=== PATIENT | female | born 1940 | race Caucasian/White ===

== ENCOUNTER 2016-07-23 08:55 | Emergency (ER) | payer OTHER ==
[~2016-07-23] VITALS: Ht 160 cm; Wt 86.2 kg
[~2016-07-23 08:55] MED LIST: ATORVASTATIN CA40 M1 PO; CALCIUM CITRATE1 TA1 PO; ESCITALOPRAM20 M1 PO; FENOFIBRATE145 M1 PO; FERROUS SULFAT325 M2 PO; HEP-FORTE1 CAP PO; HYDROCHLOROTHIA25 MG PO; INVOKANA300 MG PO; LANTUS SOLOS100 U/M1 SC; LATUDA40 M1 PO; LORAZEPAM0.5 MG PO; METFORMIN HCL1000 MG PO; METOPROLOL TART50 MG PO; MOBIC7.5 MG PO; NEU300 PO; NOR10 PO; OLANZAPINE5 M2 PO; OXYBUTYNIN CHLO10 MG PO; TRADJENTA5 M1 PO; VENLAFAXINE HYD75 MG PO; VITAMIN D1000 I1 PO; ZESTRIL20 MG PO
[2016-07-23 12:46] VITALS: BP 148/78
== END 2016-07-23 12:46 | disposition home or self-care (01) ==
LOC: ED 08:55
DX: F41.9 Anxiety disorder, unspecified (principal); I10 Essential (primary) hypertension; E11.9 Type 2 diabetes mellitus without complications; F13.20 Sedative, hypnotic or anxiolytic dependence, uncomplicated; R19.7 Diarrhea, unspecified; N39.0 Urinary tract infection, site not specified; F32.9 Major depressive disorder, single episode, unspecified; Z79.899 Other long term (current) drug therapy; Z88.8 Allergy status to other drugs, medicaments and biological substances
CPT/HCPCS: Q0177

== ENCOUNTER 2016-11-21 10:05 | Emergency (ER) | payer OTHER ==
[2016-11-21 12:33] LABS: BASOPHIL % 0.3 % (0-2); PLATELET COUNT 332 x10^3mcL (130-400)
[2016-11-21 12:39] LABS: microscopic required? NO
[2016-11-21 12:39] LABS: CARBON DIOXIDE 24.9 mmol/L (21-32); CHLORIDE SERUM 104 mmol/L (98-107); CREATININE SERUM 0.8 mg/dL (0.6-1.0); GLUCOSE SERUM 112 mg/dL (74-106); POTASSIUM SERUM 4.1 mmol/L (3.5-5.1); RED CELL DISTRIBUTION WIDTH 14.7 % (11.5-14.5); SODIUM SERUM 136 mmol/L (136-145)
[2016-11-21 12:47] LABS: urine erythrocyte NEGATIVE (NEGATIVE)
[2016-11-21 12:47] LABS: ALBUMIN 3.1 g/dL (3.4-5.0); ALKALINE PHOSPHATASE 93 U/L (46-116); ALT/SGPT 23 U/L (14-59); AMYLASE 30 U/L (25-115); AST/SGOT 17 U/L (15-37); BILIRUBIN TOTAL 0.3 mg/dL (0.20-1.00); LIPASE 108 IU/L (73-393); TOTAL PROTEIN, SERUM 6.3 g/dL (6.4-8.2)
[2016-11-21 12:57] LABS: AMPHETAMINE QUAL UR NONE DETECTED (NEG <=1000)
[2016-11-21 15:53] VITALS: BP 143/58
== END 2016-11-21 15:53 | disposition home or self-care (01) ==
LOC: ED 10:05
PROVIDERS: Emergency Medicine
DX: R51 Headache (principal); M54.2 Cervicalgia; F41.9 Anxiety disorder, unspecified; G89.29 Other chronic pain; I10 Essential (primary) hypertension; E11.9 Type 2 diabetes mellitus without complications; F99 Mental disorder, not otherwise specified; F32.1 Major depressive disorder, single episode, moderate; Z79.899 Other long term (current) drug therapy; Z88.8 Allergy status to other drugs, medicaments and biological substances; Z79.84 Long term (current) use of oral hypoglycemic drugs
CPT/HCPCS: 36600; 83880; J1885; J2270; J2405; J3490; J7030; Q9967

== ENCOUNTER 2016-11-29 11:40 | Inpatient (IN) | payer OTHER ==
[~2016-11-29] VITALS: Ht 154.9 cm; Wt 83.2 kg
--- NOTE | 2016-11-29 11:57 | NUR ---
DR LEWIS AT BEDSIDE FOR MSE. PT C/O BLQ PAIN SINCE THIS AM, PT STS ITS CONSTIPATION AND REPORTING THE LAST BM WAS YESTERDAY BUT 1 WEEK PRIOR TO THAT. PT IS ALERT AND ORIENTED FROM PACIFICA PER MEDICS, PT BREATHING IS UNLABORED AND EVEN.
--- NOTE | 2016-11-29 12:29 | NUR ---
PT OFF THE FLOOR TO CT VIA [place]
[2016-11-29 12:34] LABS: BASOPHIL % 0.2 % (0-2); PLATELET COUNT 364 x10^3mcL (130-400)
[2016-11-29 12:35] LABS: RED CELL DISTRIBUTION WIDTH 14.9 % (11.5-14.5)
--- NOTE | 2016-11-29 12:41 | NUR ---
PT BACK FROM CT AND RECONNECTED TO , SIDE RAILS UP FOR SAFETY, EMT AT BEDSIDE FOR EKG AT THIS TIME.
[2016-11-29 12:51] LABS: CALCIUM 8.9 mg/dL (8.5-10.1); CARBON DIOXIDE 24.1 mmol/L (21-32); CHLORIDE SERUM 102 mmol/L (98-107); CREATININE SERUM 0.9 mg/dL (0.6-1.0); GLUCOSE SERUM 223 mg/dL (74-106); POTASSIUM SERUM 4.5 mmol/L (3.5-5.1); SODIUM SERUM 136 mmol/L (136-145)
[2016-11-29 12:55] LABS: ALKALINE PHOSPHATASE 88 U/L (46-116); ALT/SGPT 21 U/L (14-59); AST/SGOT 15 U/L (15-37); BILIRUBIN TOTAL 0.27 mg/dL (0.20-1.00); LIPASE 92 IU/L (73-393); TOTAL PROTEIN, SERUM 6.5 g/dL (6.4-8.2)
[2016-11-29 12:57] LABS: ALBUMIN 2.9 g/dL (3.4-5.0)
[2016-11-29] MEDS ORDERED: TRAMADOL HCL50 MG PO (14:01)
--- NOTE | 2016-11-29 14:58 | NUR ---
LAB AT BEDSIDE
--- NOTE | 2016-11-29 15:05 | NUR ---
PT AMBULATED TO ER RESTROOM.
--- NOTE | 2016-11-29 15:11 | NUR ---
GAVE REPORT TO AIME, ALL QUESTIONS ADDRESSED.
[2016-11-29 15:14] LABS: MAGNESIUM 1.9 mg/dL (1.8-2.4); PHOSPHOROUS 3.8 mg/dL (2.5-4.9)
--- NOTE | 2016-11-29 15:16 | NUR ---
PT PROVIDED URINE SAMPLE AND SENT TO LAB
[2016-11-29 15:18] LABS: microscopic required? NO
[2016-11-29 15:21] LABS: T3 TOTAL 0.76 ng/mL
[2016-11-29 15:23] LABS: FREE T4 0.91 ng/dL (0.76-1.46); FREE THYROXINE INDEX 2.3 ug/dL (1.4-4.5); T4(THYROXINE) 6.7 ug/dL (4.7-13.3)
[2016-11-29 15:55] LABS: UA SPECIFIC GRAVITY <=1.005 (1.005-1.035); urine erythrocyte NEGATIVE (NEGATIVE)
--- NOTE | 2016-11-29 16:02 | NUR ---
RECEIVED PATIENT FROM ER NURSE. SETTLED IN ROOM, ORIENTED TO SURROUNDINGS AND PLACED ON CARDIAC MONITORING TELE # [id number]. ADMITTED WITH DX OF DIVERTICULITIS. PATIENT IS AWAKE, ALERT AND ORIENTED TO PERSON, PLACE, TIME AND SITUATION. CONVERSING APPROPRIATELLY. HISTORY AND ASSESSMENT OBTAINED FROM PATIENT. PATIENT APPEARS ANXIOUS TO RECEIVE "ANXIETY MEDICATION". REQUESTING CLONOPIN. SAYS THAT SHE TAKES IT 3 X PER DAY ADN THAT SHE NEEDS IT NOW. DR LIND SAW PATIENT AND IS AWARE OF PATIENT'S REQUEST. IV INFUSING LEVAQUIN.
[2016-11-29 16:12] VITALS: BP 136/63
--- NOTE | 2016-11-29 17:07 | NUR ---
AT 1630 - COMMENCED IV INFUSION OF NS AT 100ML/HR. RECEIVED CALL FROM PATIENT'S DAUGHTER MONICA WHO THEN SPOKE WITH PATIENT PER PHONE. STIL AWAITING ORDER FOR ANXIETY MEDICATION WHICH PATIENT IS REQUESTING REPEATEDLY. DR BALDWIN WORKING ON MEDICATION ORDERS.
--- NOTE | 2016-11-29 17:44 | NUR ---
AT 1723 - MEDICATED WITH ATIVAN 0.5 MG PO PER EMAR. PATIENT RESTING QUIETLY. NPO AT THIS TIME.
--- NOTE | 2016-11-29 18:55 | NUR ---
PATIENT DAUGHTER VISITED AND BROUGHT UPDATED HOME MED LIST. IV INFUSION CHANGED TO D5 NS AT 100ML/HR. PATIENT HAS BEEN MEDICATED WITH NORCO FOR C/O HEADACHE. WILL ENDORSE CARE TO NIGHT NURSE.
[2016-11-29] MEDS ORDERED: CLONAZEPAM1 MG PO (19:09)
[2016-11-29] MEDS ORDERED: CLARITIN REDITAB5 MG PO (19:10)
[2016-11-29] MEDS ORDERED: NOVI SQ (19:10)
[2016-11-29] MEDS ORDERED: OMEPRAZOLE20 M4 PO (19:11)
[2016-11-29] MEDS ORDERED: DETROL LA4 MG PO (19:11)
[2016-11-29] MEDS ORDERED: TRAZODONE50 M1 PO (19:11)
[2016-11-29] MEDS ORDERED: KEN025C TOP (19:12)
[2016-11-29] MEDS ORDERED: TRESIBA FL100 UNIT/1 SQ (19:12)
[2016-11-29] MEDS ORDERED: COLACE100 MG PO (19:13)
[2016-11-29] MEDS ORDERED: BENADRYL ALLERG25 M1 PO (19:13)
[2016-11-29] MEDS ORDERED: HYDROXYZINE50 M1 PO (19:14)
[2016-11-29] MEDS ORDERED: IBUPROFEN400 MG PO (19:15)
[2016-11-29] MEDS ORDERED: MAPAP ARTHRITI650 MG PO (19:15)
[2016-11-29] MEDS ORDERED: ONDANSETRON4 M3 PO (19:16)
[2016-11-29] MEDS ORDERED: PROMETHAZI6.25 MG/5 PO (19:18)
[2016-11-29] MEDS ORDERED: ZZZQUIL25 MG PO (19:18)
--- NOTE | 2016-11-29 19:25 | NUR ---
PT IS AAOX4. ON TELE 33 WITH FIRST DEGREE AV BLOCK. CTA ON RA. BS ARE ACTIVE, ABD ROUND, SOFT, NON-DISTENDED. THE PT DENIES ANY PAIN AT THIS TIME. THE IV IS IN THE RH, RUNNING D5 1/2 NS AT 100 ML/HR. THE BED IS IN THE LOWEST POSITION WITH THE CALL LIGHT WITHIN REACH. WILL CONTINUE TO MONITOR.
[2016-11-29] MEDS ORDERED: METOPROLOL SUCC50 M2 PO (20:49)
[2016-11-29] MEDS ORDERED: LORAZEPAM0.5 MG PO (20:55)
[2016-11-29 21:13] VITALS: BP 130/52
--- NOTE | 2016-11-29 21:48 | NUR ---
UNABLE TO PULL VIT-D AT THIS TIME. [facility]feron WON'T ALLOW IT. REQUESTED DR. VIGIL PUT IN ONE TIME ORDER. WAITING FOR KENALOG TO BE AVAILABLE UPSTAIRS.
--- NOTE | 2016-11-29 22:54 | NUR ---
PT REQUESTED KLONOPIN AND SLEEPING AID. DR. VIGIL MADE AWARE.
--- NOTE | 2016-11-30 02:49 | NUR ---
PT IS REQUESTING ANOTHER KLONOPIN. PAGEGATED DR. VIGIL.
--- NOTE | 2016-11-30 03:30 | NUR ---
IV GOT PULLED OUT BY PT ON ACCIDENT. NEW IV, 22 G STARTED ON LFA. INFUSING WELL.
--- NOTE | 2016-11-30 05:51 | NUR ---
PAGEGATED DR. VIGIL ABOUT PT REQUEST FOR KLONOPIN
[2016-11-30 06:11] VITALS: BP 144/57
--- NOTE | 2016-11-30 06:12 | NUR ---
ALL NEEDS HAVE BEEN MET THROUGHOUT THE NIGHT. SCHEDULED ATIVAN HAS BEEN CHANGED TO SCHEDULED KLONOPIN PER PT PREFERENCE. NO ACUTE DISTRESS NOTED. BED IN LOWEST POSITION AND CALL LIGHT WITHIN REACH. WILL ENDORSE TO MORNING SHIFT.
--- NOTE | 2016-11-30 07:38 | NUR ---
AT 0705 - RECEIVED PATIENT FROM NIGHT NURSE. AWAKE, ALERT AND ORIENTED. MONITOR SHOWING SINUS RHYTM; RATE 65. IV INFUSING D5 NS AT 100ML/HR. PATIENT IS NPO. ASSISTED TO BATHROOM TO VOID. SLOW AMBULATION. RETURNED TO BED AND INSTRUCTED TO CALL WITH ANY NEEDS.
[2016-11-30 07:57] LABS: BASOPHIL % 0.3 % (0-2); PLATELET COUNT 324 x10^3mcL (130-400)
[2016-11-30 08:03] LABS: RED CELL DISTRIBUTION WIDTH 14.8 % (11.5-14.5)
[2016-11-30 08:16] LABS: CALCIUM 8.6 mg/dL (8.5-10.1); CARBON DIOXIDE 23.8 mmol/L (21-32); CHLORIDE SERUM 104 mmol/L (98-107); CREATININE SERUM 0.8 mg/dL (0.6-1.0); GLUCOSE SERUM 163 mg/dL (74-106); MAGNESIUM 1.9 mg/dL (1.8-2.4); PHOSPHOROUS 3.7 mg/dL (2.5-4.9); POTASSIUM SERUM 4.4 mmol/L (3.5-5.1); SODIUM SERUM 138 mmol/L (136-145)
[2016-11-30 08:57] VITALS: BP 139/70
--- NOTE | 2016-11-30 09:59 | NUR ---
PATIENT HAS BEEN SEEN BY DR VEGAS DURING MORNING ROUNDS. MEDICAL TEAM DOCTORS, ROSALINDA CENTENO AND MYSELF PRIMARY NURSE ALSO PRESENT. DR VEGAS SPOKE WITH PATIENT ABOUT MEDICATION FOR ANXIETY. EXPLAINED TO PATIENT IMPORTANCE OF SAFETY WHEN TAKING LARGE DOSES OF THESE MEDS AND THEIR EFFECTS. TO COMMENCE ON BUSPAR.
--- NOTE | 2016-11-30 10:51 | NUR ---
COMMENCED ON BUSPAR. FIRST DOSE ADMINISTERED.
[2016-11-30 13:11] VITALS: BP 133/55
--- NOTE | 2016-11-30 13:14 | NUR ---
COMMENCED ON CLEAR LIQUID DIET. TOLERATING WELL. C/O HEADACHE AND MEDICATED WITH NORCO PER EMAR. BLE ULTRASOUND COMPLETED. RECEIVED CALL FROM PATIENT'S DAUGHTER MONICA; UPDATED ON PATIENT'S PLAN OF CARE.
--- NOTE | 2016-11-30 15:44 | NUR ---
PATIENT TAKEN OFF CARDIAC MONITORING STATUS CHANGED TO MEDR.
[2016-11-30 16:46] VITALS: BP 133/56
--- NOTE | 2016-11-30 16:55 | NUR ---
GIVEN ADDITIONAL DOSE OF ATIVAN 1MG PO FOR RESTLESSNESS AND TREMORS.
--- NOTE | 2016-11-30 18:45 | NUR ---
VSS. AFEBRILE. NO C/O ABDOMINAL PAIN. TOLERATING CLEAR LIQUID DIET. NO NAUSEA. AMBULATES TO BATHROOM FOR TOILET NEEDS. IV INFUSING D5 NS AT 50ML/HR. WILL ENDORSE CARE TO NIGHT NURSE.
--- NOTE | 2016-11-30 21:12 | NUR ---
AWAKE AND VERBALLY RESPONSIVE. ABLE TO MAKE NEEDS KNOWN, STILL C/O ANXIOUSNESS, ASKING FOR ANTIANXIETY PILLS , ENCOURAGED TO VERBALIZED FEELINGS. PLACED CALL LIGHT WITHIN REACH, INSTRUCTED TO CALL FOR ANY ASSSITANCE, AND NOT GET OUT OF BED UNASSISTED. PT VERBALIZED UNDERSANDING. WILL CONTINUE TO MONITOR.
[2016-11-30 21:14] VITALS: BP 143/57
--- NOTE | 2016-12-01 00:01 | NUR ---
CONTINUES ON ATB IVPB FOR MANAGEMENT OF DIVERTICULITIS WITHOUT ADVERSE REQ=ACTION NOTED. TOLERATED ORAL FLUIDS. NO S/S OF ASPIRATION NOTED. WILL CONTINUE TO MONIOR.
--- NOTE | 2016-12-01 00:09 | NUR ---
POTASSIUM LEVEL=2.6, CO2=42.1, H/H=7.2/21, DR VIGIL MADE AWARE. PT APPARNETLY COMOFRTABLE IN BED. IVF D5 WITH 30MQ KCL AT 83.33 CC/HR INFUSING WELL VIA PERIPHERAL LINE AT THE RAC TOLERATING WELL.
--- NOTE | 2016-12-01 05:27 | NUR ---
ASSSITED TO [facility] COMMODE FOR BLADDER ELEIMINATION WITH PERIODS OF INCONTINENCE. GOOD PERICARE RENDERED. KEPT CLEAN AND DRY. NO ADVERSE REACTION NOTED FROM ATB THERAPY FOR MANAGEMENT OF DIVERTICULITIS. ALL NEEDS ATTENDED.
[2016-12-01 06:15] VITALS: BP 126/63
[2016-12-01 06:21] LABS: CALCIUM 8.9 mg/dL (8.5-10.1); CARBON DIOXIDE 24.2 mmol/L (21-32); CHLORIDE SERUM 106 mmol/L (98-107); CREATININE SERUM 0.7 mg/dL (0.6-1.0); GLUCOSE SERUM 183 mg/dL (74-106); POTASSIUM SERUM 3.8 mmol/L (3.5-5.1); SODIUM SERUM 139 mmol/L (136-145)
[2016-12-01 06:46] LABS: BASOPHIL % 0.5 % (0-2); PLATELET COUNT 320 x10^3mcL (130-400)
[2016-12-01 06:59] LABS: RED CELL DISTRIBUTION WIDTH 14.8 % (11.5-14.5)
--- NOTE | 2016-12-01 07:20 | NUR ---
BEDSIDE REPORT RCD FROM SUSHIL MCKEON. PATIENT AWAKE, DEMANDING IN HER TONE, DEMANDING KLONOPIN. WILL CHECK MAR AND MEDICATE APPROPRIATE. D5 NS 50 ML/HR TO LFA W/O COMPLICATIONS. BED LOW, CALL LIGHT WITHIN REACH. PATIEHT ASSISTED TO SITTING POSITION FOR BREAKFAST. WILL MONITOR.
--- NOTE | 2016-12-01 07:35 | NUR ---
ALERT AND ORIENTED X3, THINKS THE YEAR IS 1988 BUT ABLE TO TELL WHY SHE IS IN THE HOSPITAL. GETS ANNOYED WITH QUESTIONS. DENIES HEADACHE OR DIZZINESS AT THIS TIME. SPEECH CLEAR, EQUAL HAND SCRAP SORTER. MED/SURG PATIENT, DENIES CHEST PAIN. HR IN 60s. LUNGS CTA [place], REG RESPS, NO COMPLAINT OF SHORTNESS OF BREATH. PALPABLE PERIPHERAL PULSES, NO EDEMA NOTED. ABD OBESE, SOFT, SLIGHT TENDERNESS TO LLQ, 2/10. DENIES JUAN/VTG/ROHINI. BM YESTERDAY. NO COMPLAINTS. BEDSIDE COMMODE AVAILABLE. REPOSITIONS SELF, WILL ASSIST NEEDED. PATIENT IS DEMANDING. WILL MONITOR.
--- NOTE | 2016-12-01 07:35 | NUR ---
KLONOPIN GIVEN PER MAR FOR ANXIETY. PATIENT DEMANDING AND IMPATIENT.
[2016-12-01 09:28] VITALS: BP 150/65
--- NOTE | 2016-12-01 10:13 | NUR ---
NORCO GIVEN PER MAR FOR 1010 HEADACHE AND NECK ACHE. PATIENT ASSISTED TO BEDSIDE COMMODE.
--- NOTE | 2016-12-01 10:39 | NUR ---
DR. NEELY INFORMED OF PATIENT'S REQUEST FOR STOOL SOFTENER SHE HAD SMALL HARD BM THIS MORNING.
--- NOTE | 2016-12-01 12:05 | NUR ---
DAUGHTER AT BEDSIDE ASKING MANY QUESTIONS. ANSWERED QUESTIONS TO THE BEST OF ABILITY. DR. NEELY CALLED AND WILL GO TO ROOM TO DISCUSS WITH DAUGHTER.
--- NOTE | 2016-12-01 14:10 | NUR ---
ASSISTED PATIENT TO BEDSIDE COMMODE. REPOSITIONED IN BED FOR COMFORT. NO OTHER NEEDS AT THIS TIME.
--- NOTE | 2016-12-01 15:35 | NUR ---
PATIENT ASKING FOR KLONOPIN FOR ANXIETY. GIVEN PER MAR. PATIENT IS LYING IN BED, APPEARS CALM. REPORTS THAT SHE FEELS BETTER AFTER WALKING WITH PHYSICAL THERAPY. NO OTHER NEEDS AT THIS TIME.
[2016-12-01 16:31] VITALS: Ht 154.9 cm; Wt 83.2 kg
[2016-12-01 17:09] VITALS: BP 136/52
--- NOTE | 2016-12-01 18:18 | NUR ---
NORCO GIVEN PER MAR FOR 7/10 HEADACHE AND NECK ACHE. NO OTHER NEEDS AT THIS TIME.
--- NOTE | 2016-12-01 19:30 | NUR ---
BEDSIDE REPORT GIVEN TO SUSHIL ANAND. PATIENT ASLEEP, REGULAR RESPS. BED LOW, CALL LIGHT WITHIN REACH. NS 50 ML/HR TO LFA W/O COMPLICATIONS. CARE ENDORSED.
--- NOTE | 2016-12-01 20:00 | NUR ---
RECEIVED PT IN BED, SLEEPING BUT EASILY AROUSABLE. PT IS ORIENTED X3. SPEECH CLEAR. DEMANDING AT TIMES. LUNG SOUNDS CLEAR. BS ACTIVE IN ALL FOUR QUADS. NO ABD PAIN NOTED, ABD IS OBESE. VOIDING FREELY WITH BSC. SCD'S TO BLE. SHIFT ASSESSMENT COMPLETED. CALL LIGHT WITHIN REACH. WILL CONTINUE TO MONITOR CLOSELY.
--- NOTE | 2016-12-01 21:00 | NUR ---
PT C/O ITCHINESS; BENADRYL GIVEN ORDERED, TOPICAL CREAM APPLIED. FSBS IS 205, 3 UNITS OF REGULAR INSULIN GIVEN. ALL DUE MEDS GIVEN ORDERED. CALL LIGHT WITHIN REACH. BED IS IN LOWEST POSITION. WILL CONTINUE TO MONITOR CLOSELY.
[2016-12-01 21:36] VITALS: BP 140/51
--- NOTE | 2016-12-02 03:00 | NUR ---
PT APPEARS TO BE SLEEPING IN NO DISTRESS. IVF ONGOING. CALL LIGHT WITHIN REACH. WILL CONTINUE TO MONITOR CLOSELY.
[2016-12-02 06:13] LABS: CALCIUM 8.7 mg/dL (8.5-10.1); CARBON DIOXIDE 25.5 mmol/L (21-32); CHLORIDE SERUM 109 mmol/L (98-107); CREATININE SERUM 0.7 mg/dL (0.6-1.0); GLUCOSE SERUM 161 mg/dL (74-106); POTASSIUM SERUM 3.7 mmol/L (3.5-5.1); SODIUM SERUM 142 mmol/L (136-145)
--- NOTE | 2016-12-02 06:40 | NUR ---
FSBS IS 197, 3 UNITS OF REGULAR INSULIN GIVEN. FLAYGL INFUSING WELL AT THIS TIME. PT HAD LARGE SOFT BM. CALL LIGHT WITHIN REACH. WILL ENDORSE TO INCOMING SHIFT.
[2016-12-02 07:27] LABS: BASOPHIL % 0.5 % (0-2); PLATELET COUNT 302 x10^3mcL (130-400)
--- NOTE | 2016-12-02 08:00 | NUR ---
PT. AWAKE, ALERT, AND ORIENTED X4. ANXIOUS AND DEMANDING. REPORTED ABDOMINAL PAIN 9/10. MANAGED PAIN BY CHANGING PT POSITION AND PAIN MEDICATION. PT. ABLE TO GET UP ON BEDSIDE COMMODE. IV FLUIDS INFUSING WELL. PT. REPORTS ITCHY SKIN. TREATMENT GIVEN ORDERED. CONTINUE IV FLUIDS AND IV PIGGYBACKS ORDERED. PT IS IN NO ACUTE DISTRESS. WILL CONTINUE PLAN OF CARE.
--- NOTE | 2016-12-02 08:05 | NUR ---
DR. BYRNES AND OTHER MEDICAL STAFF MADE ROUNDS AND UPDATED PT PLAN OF CARE.
[2016-12-02 09:37] VITALS: BP 121/50
--- NOTE | 2016-12-02 14:25 | NUR ---
PT NOTES CLEARED BY RN FOR P.T. TX. FIRST ATTEMPT (08) PATIENT'S DAUGHTER PRESENT AT BEDSIDE. DAUGHTER "MONICA" STATED THAT PATIENT HAS INCREASED PAIN AT ABDOMINAL AREA & TO FOLLOW UP AT A LATER TIME. RN WAS NOTIFIED. SECOND ATTEMPT, (513) PATIENT DECLINED. PATIENT WAS ENCOURAGED TO PARTICIPATE & EDUCATED ON THE IMPORTANCE OF THERAPY, BUT CONTINUES TO DECLINE. THIRD ATTEMPT (951), PATIENT CONTINUED TO DECLINE THERAPY & STATED, "NO NOT TODAY." PATIENT ENCOURAGED, BUT STILL DECLINED. WILL NOTIFY PRIMARY THERAPIST & RN. PVE(3)
--- NOTE | 2016-12-02 15:14 | NUR ---
Initial Nutrition Assessment Dx: Diverticulitis PMHx: HTN, DM, Hyperlipidemia PSHx:None Labs: (12/02) BH, (12/01) Alb:3.0L, Hgb:11.8L (11/29) TH, A1c:8.5H, Meds: Colace, D5 NS IVF, Dulcolax, Glucophage, Humulin, Lactinex, Protonix IV, Vit D, Zofran Diet:Clear liquid PO Intake:(11/30) B:NPO, (12/01) D:100%, (12/02) B:100% Ht: 61in, 5'1 Wt: 183#, 83.2kg BMI: 34.7kg/m2(Obesity class I) IBW: 105#, 47.7kg %IBW: 174% UBW:unable to obtain Age:75 Food Allergies:unable to obtain Skin: CDI Yohannes:21 Edema:none GI: Last BM 12/01 Pt admitted with sigmoid diverticulosis with acute focal diverticulits. CT of abd abd pelvis (11/29) with findings of acute focal diverticulitis involving the distal descending colon, per MD note 11/29. Pt did not tolerate advancement of diet this morning and had severe abdominal pain. Pt to be changed diet back to clear liquid. Pt also to receive an enema for her constipation, per progress note 12/02. Attempted to visit pt twice and pt was asleep both times. Per RN, pt is eating 100% on clear liquid diet and has contsipation. Pt had hard BM this morning. Problem with: N:No V: No D: No C:yes, pt was given enema Problems with: Chewing:No Swallowing: No Current appetite: good, per RN. Recent wt change:unable to obtain %wt change:unable to obtain Vitamin/Supplement use:unable to obtain Special diet at home: diabetic per adult admission assessment Physical activity:unable to obtain. Education: unable to provide education due to pt sleeping. Will follow up with low fiber nutrition for diverticulitis at next RD visit. Estimated Nutritional Needs Based on ideal body weight 48kg Energy: 1221-6074 kcal/d (25-30kcal/kg for adult maintenance ) Protein: 46-48g/d (0.8-1.0g/kg for adult maintenance Fluid: 1440ml/d (30ml/kg for adult maintenace) or per doctor Nutrition Diagnosis 1. Inadequate oral intake related to pt unable to tolerate CCHO diet secondary to severe abdominal pain as evidenced by pt changed back to clear liquid diet. Intervention 1.Recommend advance as tolerated to CCCHO diet. 2. Follow up with low fiber diet therapy for diverticulitus at next RD visit. Monitor/Evaluate Goal: diet advancement, PO intake at least 75% of estimated needs Monitor: diet advancement, PO intake, Labs, GI function F/U in3-5 days as moderate risk 12/05-
[2016-12-02 17:05] VITALS: BP 151/62
--- NOTE | 2016-12-02 20:37 | NUR ---
PATIENT RESTING IN BED. RESPIRATION EVEN AND UNLABORED, ON ROOM AIR. ONGOING 0.9% NS AT 50 CC/HR INFUSING WELL AT THE LEFT FOREARM. VOIDING FREELY. USES BEDSIDE COMMODE INDEPENDENTLY. GENERALIZED WEAKNESS NOTED. IRRITABLE ON APPROACH. WILL CONTINUE TO MONITOR.
[2016-12-02 21:12] VITALS: BP 112/61
[2016-12-03 05:38] VITALS: BP 149/63
[2016-12-03 05:52] LABS: BASOPHIL % 0.5 % (0-2); PLATELET COUNT 333 x10^3mcL (130-400)
[2016-12-03 05:54] LABS: RED CELL DISTRIBUTION WIDTH 15.1 % (11.5-14.5)
[2016-12-03 06:13] LABS: CALCIUM 8.5 mg/dL (8.5-10.1); CARBON DIOXIDE 24.4 mmol/L (21-32); CHLORIDE SERUM 110 mmol/L (98-107); CREATININE SERUM 0.8 mg/dL (0.6-1.0); GLUCOSE SERUM 154 mg/dL (74-106); POTASSIUM SERUM 3.7 mmol/L (3.5-5.1); SODIUM SERUM 142 mmol/L (136-145)
--- NOTE | 2016-12-03 06:44 | NUR ---
PATIENT REMAINS TO BE DEMANDING, NEEDY, EPISODES OF ANXIETY. RESPIRAITON EVEN AND UNLABORED. IV SITE PATENT AND INTACT. ASSISTED WITH NEEDS. SAFETY OBSERVED. PLACED CALL LIGHT WITHIN REACH AT ALL TIMES.
[2016-12-03 08:02] VITALS: BP 144/61
--- NOTE | 2016-12-03 08:28 | NUR ---
AT 0710 - RECEIVED PATIENT FROM NIGHT NURSE. AWAKE, ALERT AND ORIENTED. IV INFUSING NS AT 50ML/HR. NO C/O PAIN. AMBULATED TO BATHROOM AND BACK TO BED. AT 0750 - PATIENT HAS EATEN FULL LIQUID BREAKFAST. TOLERATED WELL. AT 0820 - SEEN BY DR CORBETT DURING MORNING ROUNDS. MEDICAL TEAM DOCTORS, ROSALINDA CENTENO AND MYSELF PRIMARY NURSE ALSO PRESENT. DR CORBETT SPOKE WITH PATIENT ABOUT PLAN OF CARE. FOR DONITAL PO TODAY.
--- NOTE | 2016-12-03 12:33 | NUR ---
PATIENT HAS BEEN UP AND AMBULATING WITH PHYSICAL THERAPY. NOW SITTING IN BED FOR LUNCH. IV IN LAC INFILTRATED. IV INFUSION DISCONTINUED. WILL RESITE IV AFTER PT FINISHES LUNCH.
[2016-12-03 12:44] VITALS: BP 139/66
--- NOTE | 2016-12-03 14:48 | NUR ---
P.T. NOTES [id number] ADDENDUM: Pt WANTED TO USE BSC, IMPULSIVE, ANXIOUS, DEMO CG ASSIST IN SUPINE TO SIT BED MOB, CG/SBA IN BSC TRANSFERS, ABLE TO URINATE; INDEP IN SIT TO SUPINE BED MOB; HOB ELEVATED, BED ALARM ON, CALL DU, PHONE, TABLE IN REACH; Pt EDUC ON HAND PLACEMENT & FALL PREVENTION TECH; CONT PT TA15,PVE(SAFETY,SET UP,TOILETTING)
--- NOTE | 2016-12-03 15:19 | NUR ---
AT 1300 - IV RESITED IN R HAND AND SCHEDULED DOSE OF FLAGYL ADMINISTERED. CURRENT RATE OF IV FLUID IS AT 50ML/HR NS. PATIENT RETURNED TO BED. AT 1405 - C/O ANXIETY AND REQUESTING KLONOPIN. ADMINISTERED PER EMAR.
--- NOTE | 2016-12-03 16:13 | NUR ---
PHYSICAL THERAPY DAILY NOTES CO-SIGN All documentation done by the Neuropsychology Director for 12/03/16 has been reviewed. I agree with the documentation. Reviewed/Co-Signed by: [facility] Documentation Done by:JORDAN IRENE BOX CUTTER POC REVIEWED W/ BOX CUTTER; PROGRESS ASHIA. IMPULSIVE, ANXIOUS AT TIMES, FORGETFUL AT TIMES, DEMO DEC SAFETY AWARENESS; WILL BENEFIT W/ P.T.
--- NOTE | 2016-12-03 16:56 | NUR ---
DIET HAS BEEN ADVANCED TO MECHANICAL SOFT - CHOPPED.
[2016-12-03 17:06] VITALS: BP 99/64
--- NOTE | 2016-12-03 18:25 | NUR ---
PATIENT WAS ABLE TO TOLERATE ADVANCED DIET WITHOUT NAUSEA, VOMITING OR C/O PAIN. SAT IN CHAIR FOR DINNER. NOW BACK IN BED. VSS. AFEBRILE. IV INFUSING NS AT 50 ML/HR. WILL ENDORSE CARE TO NIGHT NURSE.
[2016-12-03 21:13] VITALS: BP 125/45
--- NOTE | 2016-12-04 00:10 | NUR ---
ASSITED TO BEDSIDE COMMOD FOR BLADDER ELIMINATION. GOOD PERICARE RENDERED. KEPT CLEAN AND DRY.
[2016-12-04 05:32] VITALS: BP 142/57
--- NOTE | 2016-12-04 05:41 | NUR ---
STARTED O ROCPHIN 1GM IVPB FOR MANAGEMENT OF UTI VIA PERIPHERAL LINE TOELRATING WELL. DENIES ANY PAIN/DISCOMFORT AT THIS TIME. TOERATED ORAL FLUIDS, NO NAUSEA/VOMTING NOTED. KEPT CLEAN AND DRY. ALL NEEDS ATTENDED.
[2016-12-04 06:23] LABS: BASOPHIL % 0.2 % (0-2); PLATELET COUNT 319 x10^3mcL (130-400)
[2016-12-04 06:29] LABS: RED CELL DISTRIBUTION WIDTH 15.6 % (11.5-14.5)
[2016-12-04 06:35] LABS: CALCIUM 8.5 mg/dL (8.5-10.1); CARBON DIOXIDE 23.3 mmol/L (21-32); CHLORIDE SERUM 109 mmol/L (98-107); CREATININE SERUM 0.8 mg/dL (0.6-1.0); GLUCOSE SERUM 215 mg/dL (74-106); MAGNESIUM 1.8 mg/dL (1.8-2.4); PHOSPHOROUS 3.1 mg/dL (2.5-4.9); POTASSIUM SERUM 4.6 mmol/L (3.5-5.1); SODIUM SERUM 145 mmol/L (136-145)
--- NOTE | 2016-12-04 08:00 | NUR ---
RC'D PT RESTING IN BED. PT A/A/O/X4, SPEECH CLEAR AND APPROPRIATE. DENIES CHEST PAIN/PRESSURE. PALP PULSES. NO EDEMA NOTED. LUNGS CLEAR TO AUSCULTATION. RESPIRATIONS EQUAL AND UNLABORED BILAT. PER REPORT DIVERTICULITIS SHOWN BY ABD CT. PT DENIES PAIN/DISCOMFORT AT THIS TIME. ABDOMEN OBSES AND NONTENDER. ACTIVE BS X4. VOIDS FREELY, DENIES BURNING. GENERALIZED WEAKNESS. PT UP TO BSC WITH SLOW AND STEADY GAIT. SKIN W/D/I. DENIES PAIN AT THIS TIME. RH IV, WNL. PT CALM AND COOPERATIVE AT THIS TIME. EDUCATED ON USING CALL LIGHT WHEN NEEDING ASSISTANCE OUT OF BED. CALL LIGHT IN REACH. BED IN LOW POSITION. WILL CONTINUE TO MONITOR.
[2016-12-04 09:18] VITALS: BP 142/65
[2016-12-04 13:51] VITALS: BP 114/46
--- NOTE | 2016-12-04 14:00 | NUR ---
PT RESTING IN BED WITH EYES CLOSED. NO APPARENT SIGNS OF DISTRESS. RESPIRATIONS EQUAL AND UNLABORED BILAT. CALL LIGHT IN REACH. BED IN LOW POSTION. WILL CONTINUE TO MONITOR.
[2016-12-04 17:17] VITALS: BP 114/41
[2016-12-04 18:02] VITALS: BP 114/41
--- NOTE | 2016-12-04 19:03 | NUR ---
PT PROVIDED WITH DC HOME INSTRUCTIONS. GIVEN MEDICATION EDUCATION. MADE AWARE OF MEDICATIONS. MADE AWARE TO SCHEDULE FOLLOW UP APPT WITH PCP, INFORMATION PROVIDED IN INSTRUCTION PACKET. MADE AWARE OF WORSENING SIGNS AND SYMPTOMS TO RETURN TO ED OR REPORT TO PCP. PT VERBALIZED UNDERSTANDING OF INSTRUCTIONS. IV DC'D, CATHETER INTACT. PT TRANSPORTED VIA WC TO THE LOBBY WITH ALL PERSONAL BELONGINGS IN HAND ACCOMPANIED BY SENIOR TECHNICAL PROJECT MANAGER AND FAMILY FREE OF ANY APPARENT DISTRESS.
--- NOTE | 2016-12-06 08:19 | NUR ---
ECHOCARDIOGRAM NOT DONE PATIENT DISCHARGED
== END 2016-12-04 19:05 | disposition home health service (06) | DRG 392 ==
LOC: ED 11:40 → MU 13:52 → DU 13:52 → MU 11-30 15:30
PROVIDERS: Emergency Medicine; Family Medicine; ADMIT Student in an Organized Health Care Education/Training Program
DX: K57.32 Diverticulitis of large intestine without perforation or abscess without bleeding (principal); F13.20 Sedative, hypnotic or anxiolytic dependence, uncomplicated; D68.69 Other thrombophilia; E44.0 Moderate protein-calorie malnutrition; K59.09 Other constipation; E11.65 Type 2 diabetes mellitus with hyperglycemia; E11.51 Type 2 diabetes mellitus with diabetic peripheral angiopathy without gangrene; I10 Essential (primary) hypertension; G43.909 Migraine, unspecified, not intractable, without status migrainosus; E78.1 Pure hyperglyceridemia; F41.9 Anxiety disorder, unspecified; E66.9 Obesity, unspecified; Z79.4 Long term (current) use of insulin; Z68.35 Body mass index [BMI] 35.0-35.9, adult; Z79.84 Long term (current) use of oral hypoglycemic drugs
CPT/HCPCS: 83880; 84439; 97110-GP; 97116-GP; 97530-GP; C9113; J1956; J2270; J2405; J3490; J7030; J7042; Q0092; Q0163

== ENCOUNTER 2017-06-28 11:57 | Inpatient (IN) | payer OTHER ==
[~2017-06-28] VITALS: Ht 157.5 cm; Wt 84.4 kg
[~2017-06-28 11:57] MED LIST changes: +BENADRYL ALLERG25 M1 PO; +CLARITIN REDITAB5 MG PO; +CLONAZEPAM1 MG PO; +COLACE100 MG PO; +DETROL LA4 MG PO; +HYDROXYZINE50 M1 PO; +IBUPROFEN400 MG PO; +KEN025C TOP; +MAPAP ARTHRITI650 MG PO; +METOPROLOL SUCC50 M2 PO; +NOVI SQ; +OMEPRAZOLE20 M4 PO; +ONDANSETRON4 M3 PO; +PROMETHAZI6.25 MG/5 PO; +TRAMADOL HCL50 MG PO; +TRAZODONE50 M1 PO; +TRESIBA FL100 UNIT/1 SQ; +ZZZQUIL25 MG PO
[2017-06-28 12:35] VITALS: Ht 157.5 cm; Wt 84.4 kg
[2017-06-28 13:36] LABS: microscopic required? YES; urine erythrocyte TRACE (NEGATIVE)
[2017-06-28 13:38] LABS: BASOPHIL % 0.7 % (0-2); PLATELET COUNT 293 x10^3mcL (130-400)
[2017-06-28 13:47] LABS: CALCIUM 9.2 mg/dL (8.5-10.1); CARBON DIOXIDE 24.4 mmol/L (21-32); CHLORIDE SERUM 102 mmol/L (98-107); CREATININE SERUM 0.7 mg/dL (0.6-1.0); GLUCOSE SERUM 101 mg/dL (74-106); POTASSIUM SERUM 4.1 mmol/L (3.5-5.1); SODIUM SERUM 138 mmol/L (136-145)
[2017-06-28 13:51] LABS: OSMOLALITY SERUM 288 mOsm/kg (278-298)
[2017-06-28 13:53] LABS: ALKALINE PHOSPHATASE 105 U/L (46-116); ALT/SGPT 24 U/L (14-59); AST/SGOT 15 U/L (15-37); BILIRUBIN TOTAL 0.3 mg/dL (0.20-1.00); TOTAL PROTEIN, SERUM 6.5 g/dL (6.4-8.2)
[2017-06-28 14:51] LABS: ERYTHROCYTE SED RATE 32 mm/hr (0-30)
[2017-06-28 16:37] LABS: MAGNESIUM 1.7 mg/dL (1.8-2.4); PHOSPHOROUS 3.6 mg/dL (2.5-4.9)
[2017-06-28 16:42] LABS: T3 TOTAL 0.89 ng/mL
[2017-06-28 16:47] LABS: FREE T4 0.93 ng/dL (0.76-1.46); FREE THYROXINE INDEX 2.8 ug/dL (1.4-4.5); T4(THYROXINE) 7.6 ug/dL (4.7-13.3)
[2017-06-28] MEDS ORDERED: IMITREX100 MG PO (18:06)
[2017-06-28 18:12] VITALS: BP 128/56
[2017-06-28 20:33] VITALS: BP 130/56
[2017-06-29 06:00] VITALS: BP 147/68
[2017-06-29 06:39] LABS: BASOPHIL % 0.3 % (0-2); PLATELET COUNT 274 x10^3mcL (130-400)
[2017-06-29 06:43] LABS: CALCIUM 9.1 mg/dL (8.5-10.1); CARBON DIOXIDE 26.3 mmol/L (21-32); CHLORIDE SERUM 104 mmol/L (98-107); CREATININE SERUM 0.6 mg/dL (0.6-1.0); GLUCOSE SERUM 89 mg/dL (74-106); PHOSPHOROUS 3.3 mg/dL (2.5-4.9); POTASSIUM SERUM 3.9 mmol/L (3.5-5.1); SODIUM SERUM 139 mmol/L (136-145)
[2017-06-29 07:04] LABS: RED CELL DISTRIBUTION WIDTH 17.8 % (11.5-14.5)
[2017-06-29 09:01] VITALS: BP 137/73
[2017-06-29 17:10] VITALS: BP 145/79
[2017-06-29 21:14] VITALS: BP 127/55
[2017-06-30 05:56] VITALS: BP 140/65
[2017-06-30 06:27] LABS: BASOPHIL % 0.6 % (0-2); PLATELET COUNT 278 x10^3mcL (130-400)
[2017-06-30 06:39] LABS: CALCIUM 9.3 mg/dL (8.5-10.1); CARBON DIOXIDE 24.3 mmol/L (21-32); CHLORIDE SERUM 103 mmol/L (98-107); CREATININE SERUM 0.7 mg/dL (0.6-1.0); GLUCOSE SERUM 196 mg/dL (74-106); POTASSIUM SERUM 4.2 mmol/L (3.5-5.1); SODIUM SERUM 138 mmol/L (136-145)
[2017-06-30 06:41] LABS: RED CELL DISTRIBUTION WIDTH 17.6 % (11.5-14.5)
[2017-06-30 08:59] VITALS: BP 140/65
[2017-06-30 09:31] VITALS: BP 152/69
[2017-06-30] MEDS ORDERED: KEF500 PO (10:10)
[2017-06-30] MEDS ORDERED: FLE10 PO (10:10)
[2017-06-30] MEDS ORDERED: LAC PO (10:11)
== END 2017-06-30 14:10 | disposition home health service (06) | DRG 689 ==
LOC: ED 11:57 → DU 16:08
PROVIDERS: Emergency Medicine; Family Medicine
DX: N39.0 Urinary tract infection, site not specified (principal); N17.0 Acute kidney failure with tubular necrosis; E44.0 Moderate protein-calorie malnutrition; M62.838 Other muscle spasm; G44.209 Tension-type headache, unspecified, not intractable; I10 Essential (primary) hypertension; F32.9 Major depressive disorder, single episode, unspecified; K21.9 Gastro-esophageal reflux disease without esophagitis; Z90.710 Acquired absence of both cervix and uterus; E78.00 Pure hypercholesterolemia, unspecified; E11.21 Type 2 diabetes mellitus with diabetic nephropathy; E78.5 Hyperlipidemia, unspecified; M19.011 Primary osteoarthritis, right shoulder; B37.3 Candidiasis of vulva and vagina; E66.9 Obesity, unspecified; Z68.34 Body mass index [BMI] 34.0-34.9, adult; F41.9 Anxiety disorder, unspecified; E83.42 Hypomagnesemia; E11.65 Type 2 diabetes mellitus with hyperglycemia; Z82.49 Family history of ischemic heart disease and other diseases of the circulatory system; Z83.3 Family history of diabetes mellitus
CPT/HCPCS: 83880; 84439; 97110-GP; 97116-GP; 97530-GP; G0480; J0696; J3010; J3475; J7030; Q0092; Q0163

== ENCOUNTER 2018-06-18 15:42 | Emergency (ER) | payer OTHER ==
[~2018-06-18] VITALS: Ht 165.1 cm; Wt 89.8 kg
[~2018-06-18 15:42] MED LIST changes: +FLE10 PO; +IMITREX100 MG PO; +KEF500 PO; +LAC PO
[2018-06-18 15:53] VITALS: Ht 165.1 cm; Wt 89.8 kg
[2018-06-18 17:08] LABS: BASOPHIL % 0.4 % (0-2); PLATELET COUNT 323 x10^3mcL (130-400)
[2018-06-18 17:20] LABS: CALCIUM 9.1 mg/dL (8.5-10.1); CARBON DIOXIDE 23.5 mmol/L (21-32); CHLORIDE SERUM 102 mmol/L (98-107); CREATININE SERUM 0.8 mg/dL (0.6-1.0); GLUCOSE SERUM 324 mg/dL (74-106); SODIUM SERUM 136 mmol/L (136-145)
[2018-06-18 17:24] LABS: ALKALINE PHOSPHATASE 103 U/L (46-116); ALT/SGPT 20 U/L (14-59); AST/SGOT 15 U/L (15-37); BILIRUBIN TOTAL 0.4 mg/dL (0.20-1.00); TOTAL PROTEIN, SERUM 7.2 g/dL (6.4-8.2)
[2018-06-18 17:45] LABS: RED CELL DISTRIBUTION WIDTH 18.9 % (11.5-14.5)
[2018-06-18 17:47] LABS: ALBUMIN 3.2 g/dL (3.4-5.0)
[2018-06-18 18:51] LABS: T4(THYROXINE) 8.4 ug/dL (4.7-13.3)
[2018-06-18 19:16] LABS: AMPHETAMINE QUAL UR NONE DETECTED (See below)
[2018-06-19 09:18] VITALS: BP 123/66
== END 2018-06-19 09:35 | disposition home or self-care (01) ==
LOC: ED 15:42
PROVIDERS: Emergency Medicine
DX: F32.9 Major depressive disorder, single episode, unspecified (principal); F41.9 Anxiety disorder, unspecified; R53.1 Weakness; E11.9 Type 2 diabetes mellitus without complications; E78.00 Pure hypercholesterolemia, unspecified; I10 Essential (primary) hypertension; K21.9 Gastro-esophageal reflux disease without esophagitis; Z90.710 Acquired absence of both cervix and uterus
CPT/HCPCS: 36415; 82962; 83880; 87804; G0480; J2060

== ENCOUNTER 2019-01-17 22:33 | Inpatient (IN) | payer OTHER, MEDICAID ==
[~2019-01-17] VITALS: Ht 157.5 cm; Wt 94.0 kg
[2019-01-17 22:42] VITALS: Ht 157.5 cm; Wt 94.0 kg
--- NOTE | 2019-01-17 22:54 | NUR ---
PT BIB [facility] FROM [place] FOR SOB. PT PLACED ON BED AND MONITOR APPLIED. PT WITH C/O SOB WITH COUGH X 2 WEEKS, WORSENING THURSDAY, INCREASED WHILE LYING DOWN. PT DENIES ANY FEVER/CHILLS, N/V/D/C, OR PAINFUL URINATION. PT NOTED TO HAVE LABORED BREATHING WITH SHALLOW BREATHING AND CRACKLES NOTED BILATERALLY. PT PLACED ON 15L O2 NRB DUE TO O2 SAT IN MID/LOW 80'S ON 6L NC UPON ARRIVAL. PT NOTED WITH IMPROVEMENT TO O2 SATS WITH NRB MASK AND SITTING UP. PT'S DAUGHTER AT BEDSIDE FOR ASSISTANCE.
[2019-01-17 23:30] LABS: BASOPHIL % 0.2 % (0-2); PLATELET COUNT 375 x10^3mcL (130-400)
[2019-01-17 23:35] LABS: RED CELL DISTRIBUTION WIDTH 20.5 % (11.5-14.5)
[2019-01-17 23:37] LABS: CALCIUM 9.1 mg/dL (8.5-10.1); CARBON DIOXIDE 25.6 mmol/L (21-32); CHLORIDE SERUM 101 mmol/L (98-107); GLUCOSE SERUM 329 mg/dL (74-106); POTASSIUM SERUM 4.7 mmol/L (3.5-5.1); SODIUM SERUM 138 mmol/L (136-145)
[2019-01-17 23:40] LABS: rbc morphology (normal/abnorm) ABNORMAL (NORMAL)
--- NOTE | 2019-01-17 23:40 | NUR ---
F/C PLACED PER PT REQUEST AND OK WITH DR SALMERON WITH ASSISTANCE FROM JONNATHAN LING.
[2019-01-17 23:43] LABS: ALKALINE PHOSPHATASE 154 U/L (46-116); ALT/SGPT 27 U/L (14-59); AST/SGOT 27 U/L (15-37); BILIRUBIN TOTAL 0.6 mg/dL (0.20-1.00); TOTAL PROTEIN, SERUM 6.6 g/dL (6.4-8.2)
[2019-01-17 23:48] LABS: ALBUMIN 3.1 g/dL (3.4-5.0)
[2019-01-18] VITALS (7 sets, daily range): BP systolic 113–145; BP diastolic 48–60
--- NOTE | 2019-01-18 00:29 | NUR ---
PT RESTING IN BED WITH FAMILY AT BEDSIDE. NO SIGNS OF DISTRESS AT THIS TIME.
[2019-01-18] MEDS ORDERED: NOR10 PO (01:15)
[2019-01-18] MEDS ORDERED: ABILIFY5 M1 PO (01:15)
[2019-01-18] MEDS ORDERED: CETIRIZINE HYDR10 MG PO (01:16)
[2019-01-18] MEDS ORDERED: CITRACAL PETITE1 TAB PO (01:16)
[2019-01-18] MEDS ORDERED: KLO0.5 PO (01:17)
[2019-01-18] MEDS ORDERED: ESTRACE0.1 MG/GM VG (01:18)
[2019-01-18] MEDS ORDERED: NEU300 PO (01:19)
[2019-01-18] MEDS ORDERED: GLYBURIDE5 MG PO (01:19)
[2019-01-18] MEDS ORDERED: LANTUS SOLOS100 U/M1 SQ (01:19)
[2019-01-18] MEDS ORDERED: HYDROXYZINE HYD25 MG PO (01:20)
[2019-01-18] MEDS ORDERED: MOT600 PO (01:21)
[2019-01-18] MEDS ORDERED: LIDOCAINE51 TD (01:23)
[2019-01-18] MEDS ORDERED: PREPARATION H C26 GM RC (01:25)
[2019-01-18] MEDS ORDERED: VITAMIN D32000 I2 PO (01:26)
[2019-01-18] MEDS ORDERED: EFFEXOR-XR75 MG PO (01:26)
[2019-01-18] MEDS ORDERED: TRAZODONE50 M1 PO (01:26)
[2019-01-18] MEDS ORDERED: LISINOPRIL10 MG PO (01:27)
[2019-01-18] MEDS ORDERED: MAGNESIUM OXID400 MG PO (01:27)
[2019-01-18] MEDS ORDERED: METHYLPHENIDATE5 MG PO (01:28)
[2019-01-18] MEDS ORDERED: METOPROLOL SUCC50 M2 PO (01:28)
[2019-01-18] MEDS ORDERED: REM15 PO (01:28)
[2019-01-18] MEDS ORDERED: MELOXICAM15 M1 PO (01:28)
[2019-01-18] MEDS ORDERED: LEADER MELATONIN5 MG PO (01:28)
[2019-01-18] MEDS ORDERED: MYRBETRIQ25 MG PO (01:29)
[2019-01-18] MEDS ORDERED: ACT30 PO (01:29)
--- NOTE | 2019-01-18 01:30 | NUR ---
REPORT GIVEN TO VINCENT LING.
--- NOTE | 2019-01-18 02:00 | NUR ---
RECIEVED PT VIA GUERASTER FROM ER ACCOMPAINIED BY RN, PT IS A/OX4 COMPLAINS OF MILD STUBBS, NO COMPLAINTS OF DIZZINESS, PT IS ON 10L VIA NONREBREATHER, SATURATING AT 100% CO DENIES CHEST PAIN, PT REPORTS DYSPNEA AND MILD SOB BUT STATES SOB IS IMPROVING, PT RESPIRATORY EFFORT IS INCREASED BUT ALSO IMPROVING PER PATIENT, GREENE IN PLACE, DRAINING CLEAR YELLOW URINE, TELE MONITOR 36, NSR, IV TO THE RH 24 G NO REDNESS OR SWELLING, FLUSHES WELL, PERIPHERAL PULSES PALPABLE THROUGHOUT, +! EDEMA TO BLE, PT REPORTS GENERALIZED WEAKNESS, SAFETY PRECAUTIONS IN PLACE, PT ORIENTED TO CONTROLS OF THE ROOM, CALL LIGHT WITHIN REACH, ALL NEEDS ATTENDED TO AT THIS TIME, WILL CONTINUE TO MONITOR
[2019-01-18 02:47] LABS: CHOLESTEROL/HDL RATIO 4.1
[2019-01-18 02:55] LABS: FREE T4 1.18 ng/dL (0.76-1.46); FREE THYROXINE INDEX 2.9 ug/dL (1.4-4.5); T4(THYROXINE) 9.4 ug/dL (4.7-13.3)
[2019-01-18 02:58] LABS: T3 TOTAL 0.97 ng/mL
--- NOTE | 2019-01-18 04:17 | NUR ---
PT REPORTS 6/10 PAIN TO THE RIGHT SHOULDER, PT STATES IT IS CHRONIC AND SHOOTING, PT ALSO REPROTS INSOMNIA, DR FRANCOIS NOTIFIED. ADMINISTERED MEDICATIONS PER ORDER (SEE MAR)
--- NOTE | 2019-01-18 05:19 | NUR ---
PT RESTED COMFOTABLY SINCE ADMISSION AND SOB HAS IMPROVED AND PT IS SATURATING AT 100% ON 6L VIA NONREBREATHER, PT HAD ONE EPISODE OF RIGHT SHOULDER PAIN THAT RESOLVED WITH ADMINISTRATION OF NORCO PER ORDER, PT DENIED ANY OTHER PAIN, PT HAD 1250 ML OUT IN GREENE OF CLEAR YELLOW URINE, SAFETY PRECAUTIONS WERE MAINTAINED SINCE ADMISSION, WILL CONTINUE TO MONITOR AND ENDORSE CARE
--- NOTE | 2019-01-18 05:30 | NUR ---
PT BLOOD SUGAR 194, DR SANCHEZ SAID TO HOLD INSULIN COVERAGE BECAUSE COVERAGE WAS GIVEN AFTER PT WAS ADMITTED.
[2019-01-18 07:19] LABS: BASOPHIL % 0.4 % (0-2); PLATELET COUNT 328 x10^3mcL (130-400)
--- NOTE | 2019-01-18 07:30 | NUR ---
RECEIVED PT. IN BED A/A/O X3. MILD SOB NOTED WITH EXERTION. NO N/V NOTED. PT. DENIES ANY PAIN AT THE PRESENT TIME. IV SITE NOTED TO R HAND. PT. IS ON O2 AT 4.5L VIA NC. F/C DRAINING HECTOR URINE. BED IN LOW POS., CALL LIGHT WITHIN REACH. SIDE RAILS UP X3.
[2019-01-18 07:34] LABS: CALCIUM 8.7 mg/dL (8.5-10.1); CARBON DIOXIDE 28.4 mmol/L (21-32); CHLORIDE SERUM 101 mmol/L (98-107); CREATININE SERUM 0.8 mg/dL (0.6-1.0); GLUCOSE SERUM 173 mg/dL (74-106); POTASSIUM SERUM 4.3 mmol/L (3.5-5.1); SODIUM SERUM 139 mmol/L (136-145)
[2019-01-18 07:38] LABS: TOTAL IRON BINDING CAPACITY 316 ug/dL (250-450)
[2019-01-18 07:39] LABS: IRON 20 ug/dL (50-170)
[2019-01-18 07:46] LABS: RED CELL DISTRIBUTION WIDTH 19.7 % (11.5-14.5)
--- NOTE | 2019-01-18 15:17 | NUR ---
ECHO PENDING. PT. HAS HAD ECHO DONE TWO MONTHS AGO AT MANAGER MATERIAL OFFICE. CHARGE NURSE NOTIFIED TO REQUEST REPORT.
--- NOTE | 2019-01-18 16:16 | NUR ---
DR. HUFF AT BEDSIDE TALKING TO PT. AND FAMILY.
--- NOTE | 2019-01-18 17:31 | NUR ---
REMAINS IN STABLE CONDITION AT THIS TIME. F/C CARE GIVEN.
--- NOTE | 2019-01-18 18:52 | NUR ---
URINE COLLECTED AND SENT TO LAB FOR UA AND UDS.
[2019-01-18 19:11] LABS: UA SPECIFIC GRAVITY <=1.005 (1.005-1.035); microscopic required? YES; urine erythrocyte 2+ (NEGATIVE)
[2019-01-18 19:21] LABS: AMPHETAMINE QUAL UR NONE DETECTED (See below)
--- NOTE | 2019-01-18 19:30 | NUR ---
Pt. received from day shift nurse. Pt. resting in bed comfortable, asleep, no signs of labored breathing, no signs of distress. Pt. is a/o x4, asleep but easily arousable, pt. is NSR Tele #[id number], pt. has edema +1 on BLE, pt. lung sounds clear, on 4L N/C, bowel soudns active w/ last bm on 01/17/2019, 240 output as per day shift w/ patrick, clear colored urine and 1,200 mL fluid restriction. Pt. got up with PT during day shift, a fall risk, requires 2 person assist when up and about and usually walks with a walker at home. Pt. skin in tact, with brusing noted on upper extremities. Pt. complains of no pain at the moment, and has a saline locked IV site on the right arm. Pt. call light placed within reach, bed set at the lowest position, will continue to monitor pt.
--- NOTE | 2019-01-18 21:00 | NUR ---
Pt. B/S 210, checked by SUSHIL Bush. Pt. was given 6u of insulin as per SS. Will continue to monitor.
--- NOTE | 2019-01-18 21:26 | NUR ---
Pt. asked what medicines were due when med pass was being done. Educated pt. on her 2 anti-depressant medications and colace. Pt. verbalized understanding.
--- NOTE | 2019-01-19 05:14 | NUR ---
Pt. reported 6/10 pain on right shoulder. Called on-call for ibuprofen as per pt. states that she takes that at home for pain. Called pharmacy to verify medication. Pt. states that she takes more at home, says "I know my own body." Will reassess pain in 30 mins and continue to monitor.
--- NOTE | 2019-01-19 05:15 | NUR ---
PEDIATRIC NURSE present at time of fleet administrative assistant, reports VS as follwos: 166/70, HR 98, Resp 20, O2 at 95%, and temp at 102.2 oral. PEDIATRIC NURSE states BP taken twice on arm and temp taken 3x. Pt. given advil 200 mg PO, cooling measures provided, will continue to monitor.
[2019-01-19 05:53] VITALS: BP 150/62
--- NOTE | 2019-01-19 06:05 | NUR ---
Pt. a/o x4, able to make needs known, able to follow simple commands. Pt. asleep all throughout most of the night, no signs of distress or SOB. Pt. on continuos O2 @ 4L via NC satting consistently above 95%. Pt. had elevated bp and temp during the night. Pt. was recently repositioned right before bp was taken. New bp closer to normal range. Pt. temp was elevated, cooling measures initiated and completed, ibuprofen was given d/t right shoulder pain that is usually chronic pain. Pt. temp went down to WNL s/p ibuprofen administration. Pt. requested coffee at the same time also. Edcuated pt. that the caffeine in the coffee might cause her HR and BP to become elvated, advised pt. to drink decaffinated coffee. Pt. agreed and stated "wow this coffee is really good." Pt. resting in bed, comfortable, no signs of SOB or distress at the moment. Bed placed at lowest position, call light placed within reach, educated pt. on how to use the control in her room, will continue to monitor.
[2019-01-19 06:22] LABS: BASOPHIL % 0.3 % (0-2); PLATELET COUNT 387 x10^3mcL (130-400)
[2019-01-19 06:36] LABS: CALCIUM 8.5 mg/dL (8.5-10.1); CARBON DIOXIDE 30.4 mmol/L (21-32); CHLORIDE SERUM 101 mmol/L (98-107); CREATININE SERUM 0.8 mg/dL (0.6-1.0); GLUCOSE SERUM 143 mg/dL (74-106); PHOSPHOROUS 3.6 mg/dL (2.5-4.9); POTASSIUM SERUM 4.7 mmol/L (3.5-5.1); SODIUM SERUM 138 mmol/L (136-145)
[2019-01-19 06:49] LABS: RED CELL DISTRIBUTION WIDTH 20.3 % (11.5-14.5)
--- NOTE | 2019-01-19 06:54 | NUR ---
New order for IV ab(x) carried out. Started Zosyn q6h as ordered for possible aspiration PNA / PNA. Explained to pt. what it was for, pt. verbalized understanding. Will Continue to Monitor.
--- NOTE | 2019-01-19 08:00 | NUR ---
ALERT AND ORIENTED. LUNG SOUNDS CLEAR,DIMINISHED. ON 4L NC RT PROTOCOL. USES I.S. AT BEDSIDE. HOB ELEVATED. GOOD APPETITE.NS INFUSING TKO TO RT HAND. TELE 36 NSR.ASKING FOR LIDOCAINE PATCH FOR RT SHOULDER. WILL ASK KITCHEN PORTER. VSS. CALL LIGHT WITHIN REACH. GREENE DRAINING YELLOW URINE. ON STRICT I & O'S.
[2019-01-19 08:08] VITALS: BP 146/62
[2019-01-19 11:57] VITALS: BP 135/59
--- NOTE | 2019-01-19 14:30 | NUR ---
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, DJD PSHx: none Labs: BG 143H, BUN 19H, A1C 7.9H, HGB 8.9L Meds: Abilify, Colace, D 50%, humulin, lantus, Lasix, remeron, Zofran, zosyn Diet: CCHO, cardiac PO Intake: (01/19) breakfast 90%, (01/18) breakfast 75% Ht: 157.48 cm (62") Wt: 84.3 kg (185#) BMI: 34 kg/m2 Bed scale: 199.8# IBW: 110# (50 kg) %IBW: 168 UBW: 180-185# Age: 78/F Food Allergies: NKFA Skin: intact Yohannes: 19 Edema: +1 BLE GI: Last BM: 01/17 Trigger: admitted w/ risk diagnosis Per H&P, Pt is a 78 yo female with PMH of HTN, DM, Depression, Anxiety, GERD, DJD and DM who was BIBA from [place] for worsening shortness of breath. RDN Visit (01/19): Patient was alert and oriented with daughter at bedside. Patient said that she ate 100% breakfast this morning. Patient is on 1200 ml/day fluid restriction because of CHF. Patient's daughter said that she is allergic to pork. Patient also said that she feels bloated after consuming milk. Allergies were entered in computrtion. Problem with: N/V/D/C: constipation Problems with: Chewing/Swallowing: none Current appetite: good Recent wt change: gained 14# d/t fluid retention %wt change: n/a Vitamin/Supplement use: figh oil, vitamin D, turmeric Special diet at home: regular Physical activity: sedentary Nutrition education given: Diabetes diet education was provided using [facility] handout on 'Type 2 Diabetes Nutrition Therapy'. Concepts like high fiber diet, label reading, types of carbohydrates and portion control were discussed. Patient verbalized understanding and did not have any questions at this time. Food-drug interactions: Education given: Estimated Nutritional Needs Based on current body weight 84.3 kg Energy: 7829-6296 kcal/d (25-30 kcal/kg) Protein: 84-101 g/d (1.0-1.2 g/kg) - preserve LBM Fluid: 3100-2943 ml/d (1 ml/kcal) or per doctor Nutrition Diagnosis 1. 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 Recommend continuing CCHO, cardiac (FR 1200 ml/day). Monitor/Evaluate Goal: PO intake at least 75% of estimated needs Monitor: PO intake, Labs, GI function F/U in 3-5 days as low risk 10/2
--- NOTE | 2019-01-19 14:30 | NUR ---
1. Recommend continuing CCHO, cardiac (FR 1200 ml/day).
[2019-01-19 17:22] VITALS: BP 132/48
--- NOTE | 2019-01-19 18:00 | NUR ---
PT HAD EPISODE OF CHOKING ON MAK CRACKER. BY THE TIME I WAS INFORMED RT HAD ALREADY TAKEN CARE OF PT. RT SUCTIONED BUT GOT NOTHING. PT MUST HAVE COUGHED PIECE OUT. SAT 97% ON 4L. RESTING QIETLY.
--- NOTE | 2019-01-19 19:01 | NUR ---
GREENE CARE PROVIDED. SM AMT BLOOD NOTED ON CHUX DURING GREENE CARE. PT SAID SHE HAS HEMORROIDS THAT BLEED. BRP W ASSIST.CONTINUES ON ZOSYN IV ABX. STRICT I & O'S. VSS. CALL LIGHT WITHIN REACH.
--- NOTE | 2019-01-19 19:35 | NUR ---
PT SEEN, RESTING IN BED, ALERT AND ORIENTED, DENIES HEADACHE OR DIZZINESS, BREATHING EVEN AND UNLABORED, LUNG SOUNDS DIMINISHED, ON O2 4L VIA NC, SOB ON EXERTION, ON TELE#36 NSR, DENIES CHEST PAIN, PULSES PALPABLE, EDEMA NOTED TO BLE, GENERALIZED WEAKNESS, ABD OBESE WITH ACTIVE BS, NO BM AT THIS TIME, GREENE VIA GRAVITY DRAINING YELLOW URINE, NO DISTRESS NOTED, WILL KEEP TO MONITOR.
--- NOTE | 2019-01-19 20:43 | NUR ---
ALL DUE MEDS GIVEN, NOTED PT FOLLOWED WITH COUGHING AFTER SHE TOOK HER MEDS, NO S&S OF RESP DISTRESS NOTED, DR LIEBERMAN MADE AWARE, SWALLOW EVAL ORDERED.
[2019-01-19 21:05] VITALS: BP 140/66
--- NOTE | 2019-01-19 23:45 | NUR ---
ROUNDS MADE, PT ASLEEP AND APPEARS COMFORTABLE IN BED, BREATHING EVEN AND UNLABORED ON O2 3.5L VIA NC, NO DISTRESS NOTED, WILL KEEP TO MONITOR.
--- NOTE | 2019-01-20 05:33 | NUR ---
PT ASLEEP BUT EASILY AROUSABLE, SLEPT MOST OF NIGHT AFTER MEDICATED WITH TRAZODONE PO, BREATHING EVEN AND UNLABORED ON O2 3.5L VIA NC, MORNING BLOOD SUGAR- 146 MG/DL WITH NO RISS, SCD TO BLE, STRCIT I&O, NO DISTRESS NOTED, WILL KEEP TO MONITOR.
[2019-01-20 05:35] VITALS: BP 149/62
--- NOTE | 2019-01-20 06:35 | NUR ---
PT CALLED AND STATED THAT SHE IS VERY ANXIOUS AND SHE NEEDS HER KLONOPIN PO AT THIS TIME, EXPLAINED TO PT THAT THE NEXT KLONOPIN SCHEDULED AT 0900AM, PT STARTED TO CRY AND HAVING SOB, KLONOPIN GIVEN DUE TO PT WAS INSISTED.
[2019-01-20 07:04] LABS: BASOPHIL % 0.7 % (0-2); PLATELET COUNT 361 x10^3mcL (130-400)
--- NOTE | 2019-01-20 07:11 | NUR ---
BEDSIDE HADNOFF REPORT GIVEN TO AMERICO-RN, ALL QUESTIONS ANSWERED AND CONCERNS ADDRESSED, PT UP IN THE CHAIR AT THIS TIME.
[2019-01-20 07:30] LABS: CALCIUM 8.6 mg/dL (8.5-10.1); CARBON DIOXIDE 31.2 mmol/L (21-32); CHLORIDE SERUM 99 mmol/L (98-107); CREATININE SERUM 0.9 mg/dL (0.6-1.0); GLUCOSE SERUM 165 mg/dL (74-106); POTASSIUM SERUM 4.7 mmol/L (3.5-5.1); SODIUM SERUM 138 mmol/L (136-145)
--- NOTE | 2019-01-20 07:45 | NUR ---
ALERT AND ORIENTED. SITTING UP IN CHAIR FOR BREAKFAST. ON 02 4L NC. CONTINUES WITH RT. NO C/O PAIN AT THIS TIME. INSTRUCTED PT TO TAKE SMALL BITES AND CHEW VERY THOROUGHLY TO PREVENT ASPIRATION. GREENE DRAINING YELLOW URINE. NS INFUSING TKO. TELE # 36 NSR. SHELL HOUSTON CAME IN TO SEE PT. POSSIBLE DC BACK TO [place] TOMORROW. CALL LIGHT WITHIN REACH.
[2019-01-20 07:52] VITALS: BP 125/46
[2019-01-20 08:02] LABS: RED CELL DISTRIBUTION WIDTH 20.1 % (11.5-14.5)
--- NOTE | 2019-01-20 09:53 | NUR ---
PT WAS SEEN FOR DYSPHAGIA. PT WAS ABLE TO SAFELY SWALLOW MS DIET WITH CHOPPED MEAT AND VEG WITH THIN LIQUID WITHOUT S/S OF ASPIRATION. PT NEED SUPERVISION FOR SMALL BITES AND SIPS. RECOMMENDATION' MS DIET WITH CHOPPED MEAT AND VEG SMALL BITES AND SIPS 1:1 SUPERVISION
--- NOTE | 2019-01-20 10:31 | NUR ---
NEW ORDER TO WEAN PT OFF 02 RT. REDUCED 02 FROM 4L TO 3L AND WILL MONITOR 02 SAT.
--- NOTE | 2019-01-20 13:26 | NUR ---
REMOVED 02 NS PER SHELL HOUSTON
[2019-01-20 14:00] VITALS: BP 121/43
--- NOTE | 2019-01-20 14:08 | NUR ---
SERVANDO FROM RESPIRATORY REPORTED PT O2SAT ON ROOM AIR IS AT 86%, SHELL(N.P.) MADE AWARE, SHE SAYS TO SLOWLY TITRATE PT OXYGEN. RESPIRATORY THERAPY WILL GIVE PT BREATHING TREATMENT AND WILL PLACE PT ON OXYGEN AT 2L/NC. AMERICO LING ASSIGNED TO THIS PT MADE AWARE OF ABOVE.
--- NOTE | 2019-01-20 14:59 | NUR ---
PHYSICAL THERAPY DAILY NOTES CO-SIGN All documentation done by the Meat Scrubber for 01/20/19 has been reviewed. I agree with the documentation. Reviewed/Co-Signed by: Katrina Escobar PT Documentation Done by:BLAKE CHEATHAM PTA
[2019-01-20 17:03] VITALS: BP 133/45
--- NOTE | 2019-01-20 18:21 | NUR ---
ALERT AND ORIENTED. SITTING UP IN CHAIR WATCHING TV. TORADOL HELPFUL FOR NECK AND SHOULDER PAIN. DR. OTERO IN TO SEE PT TODAY. CONTINUES ON RT PROTOCOL, NC 2L, ZOSYN IV ABX. UP W/ P,T, USING WALKER. VSS CALL LIGHT WITHIN REACH. CONTINUE ON STRICT I&O'S.
--- NOTE | 2019-01-20 19:07 | NUR ---
GREENE CARE PROVIDED.
--- NOTE | 2019-01-20 19:30 | NUR ---
RECEIVED PT LAYING IN BED, NO ACUTE DISTRESS OBSERVED, DENIES PAIN OR DISCOMFORT AT THIS TIME. BREATHING ON 2L NC, EVEN AND UNLABORED, DENIES SOB OR DYSPNEA, LUNGS DIM TO YASMANY BASES, O2 SAT 95% RT PROTOCOL IN PLACE. AA/OX4, ABLE TO MAKE NEEDS KNOWN, SPEECH CLEAR AND APPRORPRIATE. NSR TO TELE #36, DENIES CP OR PRESSURE. PULSES PALPABLE AND EQUAL THROUGHOUT, SWELLING TO BLE. DENIES N/V/D. GREENE CATH IN PLACE DRAINING YELLOW URINE TO GRAVITY. GENERALIZED WEAKNESS, UP WITH P.T. AMBULATORY WITH ASSIST, ABLE TO REPOSITION SELF IN BED. IV TO RH IN PLACE, DRY, PATENT, INTACT, S/L, NO S&S PHLEBITIS OR INFILTRATION NOTED. COMFORT AND SAFETY MEASURES IN PLACE. ALL NEEDS ASSESSED AND ATTENDED TO. CALL LIGHT WITHIN REACH. WILL CONTINUE TO MONITOR
[2019-01-20 20:26] VITALS: BP 136/49
[2019-01-21 05:25] VITALS: BP 151/70
--- NOTE | 2019-01-21 06:43 | NUR ---
NO SIGNIFICANT CHANGES TO REPORT, PT COMPLIED WITH NURSING CARE THROUGHOUT THE SHIFT WITH NO ACUTE EVENTS OVERNIGHT. NO ACUTE DISTRESS OBSERVED AT THIS TIME. PT LAYING IN BED, BREATHING EVEN AND UNLABORED ON 1L NC WITH HUMIDIFIER. COMFORT AND SAFETY MEASURES MAINTAINED. ALL NEEDS ASSESSED AND ATTENDED TO. CALL LIGHT WITHIN REACH. WILL CONTINUE TO MONITOR AND ENDORSE CARE TO DAY SHIFT NURSE.
[2019-01-21 06:54] LABS: BASOPHIL % 0.7 % (0-2); PLATELET COUNT 381 x10^3mcL (130-400)
[2019-01-21 07:02] LABS: RED CELL DISTRIBUTION WIDTH 19.7 % (11.5-14.5)
--- NOTE | 2019-01-21 07:10 | NUR ---
RECIEVED PT USING RESTROOM. NO C/O PAIN OR DISTRESS. A/O X4 TELE# 36 CONNECTED TO PT, DENIES ANY CP OR PRESSURE. PT ON 2 LPM O2 NC. NO SOB NOTED. FLUID RESTRICTION OF 1200 ML/DAY. GREENE CATHETER IN PLACE AND DRAINING. SALINE LOCK INTACT AND PATENT, WITH NO REDNESS. SAFETY PRECAUTIONS IN PLACE, CALL LIGHT WITHIN REACH, WILL MONITOR.
[2019-01-21 07:12] LABS: CALCIUM 8.7 mg/dL (8.5-10.1); CARBON DIOXIDE 31.3 mmol/L (21-32); CHLORIDE SERUM 100 mmol/L (98-107); CREATININE SERUM 0.9 mg/dL (0.6-1.0); GLUCOSE SERUM 200 mg/dL (74-106); POTASSIUM SERUM 4.7 mmol/L (3.5-5.1); SODIUM SERUM 137 mmol/L (136-145)
--- NOTE | 2019-01-21 10:33 | NUR ---
SPOKE WITH CELSO GOFF. PT NOT STABLE TO DISCHARGE AT THIS TIME D/T O2 DEPENDENCE. WEANING TOLERATED. PT AND DAUGHTER EDUCATED ON TREATMENT AND POC. WILL CONTINUE TO MONITOR.
--- NOTE | 2019-01-21 12:46 | NUR ---
PT OB STOOL CULTURE CAME BACK POSITIVE, CELSO GOFF NOTIFIED. NO NEW ORDERS AT THIS TIME. WILL CONTINUE TO MONITOR.
[2019-01-21 13:15] VITALS: BP 136/66
[2019-01-21 17:07] VITALS: BP 150/62
--- NOTE | 2019-01-21 18:51 | NUR ---
PT STABLE WITH NO C/O ANY DISTRESS OR SOB. ALL CARES TOLERATED WELL. A/O X4 WITH NO STUBBS OR DIZZINESS. DENIES CP AT THIS TIME. PT ON RA SAT AT 96%. NO SOB NOTED. IV IN RH INTACT AND PATENT WITH NO REDNESS OR INFLAMMATION NOTED. GREENE CATHETER IN PLACE AND DRAINING YELLOW URINE. SAFETY PRECAUTIONS IN PLACE, CALL LIGHT WITHIN REACH, WILL ENDORSE CARE TO NIGHT NURSE.
--- NOTE | 2019-01-21 19:00 | NUR ---
RECEIVED PT LAYING IN BED, NO ACUTE DISTRESS OBSERVED, C/O 10/ PAIN TO L SHOULDER AND REQUESTING PAIN MED, WILL MEDICATE PRN, PLEASE SEE EMAR. BREATHING ON RA, EVEN AND UNLABORED, DENIES SOB OR DYSPNEA, LUNGS DIM TO YASMANY BASES, O2 SAT 96% RT PROTOCOL IN PLACE. AA/OX4, ABLE TO MAKE NEEDS KNOWN, SPEECH CLEAR AND APPRORPRIATE. MED-SURG, NO TELE, DENIES CP OR PRESSURE. PULSES PALPABLE AND EQUAL THROUGHOUT, MILD SWELLING TO BLE, NONPITTING. DENIES N/V/D. GREENE CATH IN PLACE DRAINING YELLOW URINE TO GRAVITY. GENERALIZED WEAKNESS, UP WITH P.T. AMBULATORY WITH ASSIST, ABLE TO REPOSITION SELF IN BED. IV TO RH IN PLACE, DRY, PATENT, INTACT, S/L, NO S&S PHLEBITIS OR INFILTRATION NOTED. COMFORT AND SAFETY MEASURES IN PLACE. ALL NEEDS ASSESSED AND ATTENDED TO. CALL LIGHT WITHIN REACH. WILL CONTINUE TO MONITOR
[2019-01-21 20:38] VITALS: BP 149/54
--- NOTE | 2019-01-22 02:17 | NUR ---
PT LAYING IN BED, BREATHING EVEN AND UNLABORED, NO ACUTE DISTRESS OBSERVED. AROUSABLE TO VERBAL STIMULI. CALL LIGHT WITHIN REACH. WILL CONTINUE TO MONITOR
--- NOTE | 2019-01-22 06:14 | NUR ---
NO SIGNIFICANT CHANGES TO REPORT, PT COMPLIED WITH NURSING CARE THROUGHOUT THE SHIFT WITH NO ACUTE EVENTS OVERNIGHT. NO ACUTE DISTRESS OBSERVED AT THIS TIME, PT LAYING IN BED, BREATHING EVEN AND UNLABORED ON ROOM AIR, O2 SAT 96% AROUSABLE TO VERBAL STIMULI. COMFORT AND SAFETY MEASURES MAINTAINED. ALL NEEDS ASSESSED AND ATTENDED TO. CALL LIGHT WITHIN REACH. WILL CONTINUE TO MONITOR AND ENDORSE CARE TO DAY SHIFT NURSE
[2019-01-22 06:39] VITALS: BP 147/51
[2019-01-22 07:01] LABS: BASOPHIL % 0.6 % (0-2)
--- NOTE | 2019-01-22 07:05 | NUR ---
PT IN BATHROOM AT THIS TIME TO HAVE BM. PT MADE AWARE TO PULL CORD FOR ASSISTANCE BACK TO BED, PT VERBALIZED UNDERSTANDING. REPORT GIVEN TO SUSHIL CARCAMO, TO ASSUME CARE. ALL QUESTIONS AND CONCERNS ADDRESSED. ALL CARES ENDORSED
--- NOTE | 2019-01-22 07:15 | NUR ---
RECIEVED PT SITTING UP IN BED WITH NO C/O PAIN, DISTRESS, OR SOB. A/O X4 WITH NO STUBBS OR DIZZINESS REPORTED. PT ON RA AT THIS TIME AND TOLERATING WELL. NIGHT NURSE REPORTS 400ML INTAKE OF 1200ML/DAY FLUID RESTRICTION. SALINE LOCK TO RH INTACT AND PATENT WITH NO REDNES ORINFLAMMATION. SAFETY PRECAUTIONS IN PLACE, CALL LIGHT WITHIN REACH, WILL MONITOR.
[2019-01-22 07:35] LABS: PLATELET COUNT 413 x10^3mcL (130-400); RED CELL DISTRIBUTION WIDTH 19.5 % (11.5-14.5); rbc morphology (normal/abnorm) ABNORMAL (NORMAL)
[2019-01-22 08:32] LABS: CALCIUM 9.1 mg/dL (8.5-10.1); CARBON DIOXIDE 30.1 mmol/L (21-32); CHLORIDE SERUM 100 mmol/L (98-107); CREATININE SERUM 0.8 mg/dL (0.6-1.0); GLUCOSE SERUM 231 mg/dL (74-106); MAGNESIUM 2.3 mg/dL (1.8-2.4); POTASSIUM SERUM 4.7 mmol/L (3.5-5.1); SODIUM SERUM 137 mmol/L (136-145)
[2019-01-22 09:00] VITALS: BP 152/68
[2019-01-22] MEDS ORDERED: LEVAQUIN750 MG PO (11:18)
[2019-01-22] MEDS ORDERED: LASIX20 MG PO (11:21)
[2019-01-22] MEDS ORDERED: LIPI10 PO (11:23)
--- NOTE | 2019-01-22 12:26 | NUR ---
PT GIVEN TORADOL PER EMAR FOR C/O 12/04 ARM PAIN, WILL REASSESS.
--- NOTE | 2019-01-22 12:36 | NUR ---
CALLED [facility] AND SPOKE WITH RAFAEL. INFORMED HER THAT PATIENT IS STABLE TO BE DC BACK TO [place] AND RESUME HOME HEALTH PREVIOUSLY. PER RAFAEL PATIENT CAN GO BACK TO [place] TODAY, DAUGHTER WILL TRANSPORT PATIENT BACK. ATTENDING NURSE DONA MADE AWARE.
--- NOTE | 2019-01-22 12:51 | NUR ---
PHYSICAL THERAPY DAILY NOTES CO-SIGN All documentation done by the Chain Sales Consultant for 01/22/19 has been reviewed. I agree with the documentation. Reviewed/Co-Signed by: Harry Park PT Documentation Done by:JORDAN IRENE NUTRITION TECHNICIAN POC REVIEWED W/ NUTRITION TECHNICIAN; PROGRESSING W/ FUNC MOB & GAIT ENDURANCE; WILL BENEFIT W/ P.T.
[2019-01-22 12:53] VITALS: BP 152/68
--- NOTE | 2019-01-22 13:16 | NUR ---
PT STABLE TO DISCHARGE PER MD ORDER. ALL CARES TOPLERATED WELL, VS WNL. GREENE CATHETER D/C'D, PT TOLERATED WELL. IV REMOVED WITH CATHETER INTACT AND NO REDNESS OR INFLAMMATION NOTED TO SITE. PT EXPLAINED THAT SHE HAS TO URINATE ON OWN BEFORE SHE CAN LEAVE. ALSO WAITING FOR DAUGHTER TO GET BACK FROM [place], WILL MONITOR.
--- NOTE | 2019-01-22 14:22 | NUR ---
PT REPORTS SHE URINATED ON HER OWN. DAUGHTER IS BACK TO EXCHANGE TELLER PT AND TAKE HER BACK TO [place]. ALL DISCHARGE INSTRUCTIONS, EDUCATION, AND PRESCRIPTIONS GIVEN TO PT AND DAUGHTER. BOTH VERBALIZE UNDERSTANDING. FORMS SIGNED. IV AND GREENE ALREADY REMOVED EARLIER. ID BAND REMOVED FROM PT. PT ESCORTED DOWN TO LOBBY VIA WC BY DIANA AND DAUGHTER AT SIDE. ALL PERSONAL BELONGINGS IN HAND.
== END 2019-01-22 14:34 | DRG 291 ==
LOC: ED 22:33 → DU 01-18 00:59 → MU 01-21 14:28
PROVIDERS: Emergency Medicine; General Practice; ADMIT Internal Medicine
DX: I11.0 Hypertensive heart disease with heart failure (principal); I50.31 Acute diastolic (congestive) heart failure; J96.01 Acute respiratory failure with hypoxia; J18.9 Pneumonia, unspecified organism; E11.65 Type 2 diabetes mellitus with hyperglycemia; D50.9 Iron deficiency anemia, unspecified; I35.0 Nonrheumatic aortic (valve) stenosis; K21.9 Gastro-esophageal reflux disease without esophagitis; M19.90 Unspecified osteoarthritis, unspecified site; Z79.899 Other long term (current) drug therapy; Z68.32 Body mass index [BMI] 32.0-32.9, adult
CPT/HCPCS: 36600; 82962; 83880; 84439; 92526-GN; 92610-GN; 94150; 97110-GP; 97116-GP; 97530-GP; G0378; J1644; J1650; J1815; J1885; J1940; J2405; J2543; J7030; J7050; J7620; Q0092